=== PATIENT | female | born 1985 ===

== ENCOUNTER 2022-11-14 09:52 | Outpatient (AMB) | payer OTHER, SELFPAY ==
--- NOTE | 2022-11-14 09:55 | MHC.OFFVIS ---
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 My pcp just doesn't know how to treat them because he knows I cant tolerate the triptans. Kids Activities Coach Required: No Allergies [id number] Antimigraine Agents Allergy (Unknown, Verified 11/14/22 10:02) Unknown Medication List - Last Reconciled 11/14/22 by JERAD Obando [id number] 50-325-40 mg 0 tabs PO escitalopram oxalate mg PO famotidine 40 mg PO BEDTIME levothyroxine 25 mcg PO DAILY propranolol 20 mg PO TID topiramate (Topamax) 100 mg PO BEDTIME trazodone 25 mg PO BEDTIME PRN tretinoin 0.025% appl topical BEDTIME HPI HPI Comments History of Present Illness Details Right-handed 37-yr-old female presents for new pt evaluation of headache disorder to optimize migraine tx regimen. Headache questionnaire: Age/time of onset? Dx'd with migraine in 2004, but had s/s prior to this. Preceding causes? None Headache characteristics? A headache starts with mild headache x's 3-4 days f/b a full attack x's another 4-7 days. Pain intensity? Mild-Severe Prodrome symptoms? None Aura? Just once, recently, had right eye tunnel vision. Associated symptoms? Photophobia, phonophobia, osmophobia, nausea, brain fog, tiredness. Focal weakness, Parethesias, Autonomic s/s? watery eyes, runny nose Postdrome? Does not feel well- lingering fatigue, tiredness, brain fog- difficulty word finding Triggers? Stress, not eating- but not a clear trigger of an attack. Positional, valsalva, exertional, sexual activity triggers? None Menstrual triggers? None Time of day? No specific time of day Duration? 1-1.5 weeks Frequency? 1 attack per month- used to be 1 attack per season change. How does headache impact your life? Has not missed work, but sometimes needs to work from remotely. Works as a pharmacy fast food assistant restaurant manager. Current acute medication use/interventions: Excedrin- helps some w/ mild headache. Uses Fioricet for more severe headache- helps her sleep. Previous acute medication use: Sumatriptan, Naratriptan, Rizatriptan- helped w/ headache but all caused nausea, a cold sensation through spine, skin sensitivity. Current preventative medication use: Topiramate 100mg qhs- recently increased from 50-100mg but has not helped. Uses Propranol 20mg prn for anxiety. Previous preventative medication use: Amitriptyline- stopped to minimize side effect and switched to Nortriptyline which was effective but caused GI s/s. Non-pharmacological interventions: Ice, dark room, rest. No h/o head imaging. Other history of headache disorder? None History of musculoskeletal disorders or injury? None History of concussion/head injury? None History of mood disorder? Depression- well-controlled. History of sleep disorder? Some issues. History of respiratory disease? None History of CV disease? None History of coagulopathy? None History of endocrine or metabolic disease? Hypothyroisim- stable History of seizure? None Other? Can be prone to constipation. Family planning? None Family history of migraine or other headache disorder? Mother possibly has migraines. [facility] Medical History (Updated 11/17/22 @ 18:57 by JERAD Obando) GERD (gastroesophageal reflux disease) Gestational diabetes History of COVID-19 Hypothyroidism Surgical History Hx of cholecystectomy [place] teeth extracted Family History Mother History of thyroid disorder Asthma Migraines Diabetes Hypertension CHF (congestive heart failure) Father Diabetes Hypertension Colon polyps Hypercholesteremia Paternal Grandmother Diabetes Hypertension CAD (coronary artery disease) Maternal Grandmother Hypertension Diabetes CAD (coronary artery disease) Alzheimer's dementia Maternal Grandfather Diabetes Hypertension Emphysema lung Social History (Updated 11/14/22 @ 10:07 by Anabella Terrazas CMA) Alcohol intake: current Alcohol intake frequency: does not drink Patient Tobacco Use Status: Never used Tobacco Review of Systems Const Details: See scanned ROS form Physical Exam Vital Signs: Last Vital Signs Pulse 86 11/14/22 09:56 BP 118/88 11/14/22 09:56 Pulse Ox 100 11/14/22 09:56 Oxygen Delivery Method Room Air 11/14/22 09:56 BMI result Body Mass Index 28.8 Const Orientation/consciousness: patient oriented x3 HEENT Other: No palpable scalp tenderness. Head: Yes normocephalic Resp Effort & Inspection: normal respiratory effort and able to speak in complete sentences Back/Spine/Pelvis Other: Bilateral posterior cervical tightness. Cervical ROM: full Left Spurling: normal Right Spurling: normal. Neuro General: patient oriented x3 Cranial nerves: Yes CN's II-XII intact bilaterally Cognition (Neuro): normal cognition Gait exam (Neuro): Normal gait present Motor exam (neuro): 5/5 motor strength present throughout Deep tendon reflexes (DTR's): Right triceps reflex intensity grade: 2+, Left triceps reflex intensity grade: 2+, Rt Biceps (C5, C6): 2+, Left biceps reflex intensity grade: 2+, Right brachioradialis reflex intensity grade: 2+, Left brachioradialis reflex intensity grade: 2+, Right patellar reflex intensity grade: 2+ and Left patellar reflex intensity grade: 2+ Coordination: [id number] test normal, tandem gait normal and Romberg test negative Pupils: Normal pupillary reactivity/response: bilateral Psych Appearance: grossly normal Mental Status: mental status grossly normal Speech and movement: Normal speech and movement present Affect: normal affect Attitude: cooperative Thought process: Normal thought process present Assessment & Plan Assessment & Plan (1) Migraine without aura: Code(s): G43.009 - Migraine without aura, not intractable, without status migrainosus (2) Visual aura: Comment: One episode- right eye- seeing steve booker Code(s): H53.9 - Unspecified visual disturbance Plan For visual aura: Pt has had one episode of right visual aura f/b mild headache. Will monitor. Consider head imaging if repeated or worsening/new symptoms. For overall headache management: Discussed importance of good self-care, including but not limited to maintaining a healthy diet, adequate fluid intake, adequate sleep, and engaging in regular physical activity. For headache triggers: Track headaches, especially after any treatment regimen changes. NoteWagon is one of many headache tracking apps. For acute headache treatment: Discussed importance of taking acute medications at the first sign of headache, however stressed importance of avoiding acute medication overuse (especially with combined headache medications). Trial Ubrogepant (Ubrelvy) 100mg tab, 1/2 - 1 tab (50-100mg) at onset of headache, may repeat in 2 hours. Max of 2 tabs (200mg) per 24 hours. May adjunct with OTC Tylenol 650mg q 4 hours, Ibuprofen 600mg q 6 hours, or Naproxen 440mg q 12 hrs prn. Do not take w/ Butalbital (Fioricet). Hold Fioricet, if Ubrogepant ineffective, may resume. Reviewed potential adverse effects of gepants, including but not limited to fatigue, nausea, dry mouth, constipation. Previous acute migraine medication trials: Sumatriptan, Naratriptan, Rizatriptan- helped w/ headache but all caused nausea, a cold sensation through spine, skin sensitivity. Acute migraine medication contraindications: Triptans- not tolerated. For headache prevention medication: Discussed that preventative medications should be taken routinely as prescribed for best effect, it may take several weeks for full effect to take effect. May continue Topiramate 100mg qhs. Trial adjusting Propranol ER 60mg qhs. Reviewed potential adverse effects of betablockers, including but not limited to fatigue, hypotension, slow heart rate, respiratory changes. Previous migraine prevention medication trials: Amitriptyline- stopped to minimize risk of side effects. Nortriptyline- was effective but caused GI s/s. Migraine prevention medication contraindications: None at this time. Information also given on non-pharmacological interventions, such as Cefaly or Nerivio neuromodulation devices. Pt to follow-up in 3 months or sooner prn. Medications: New ubrogepant (Ubrelvy) take at onset of migraine, may repeat in 2hrs (may take w/ Ibuprofen) 50 - 100 mg (0.5 - 1 x 100 mg) PO ONCE 30 days PRN 16 tabs 3RF migraine headache propranolol ER 60 mg PO BEDTIME 30 days 30 caps 6RF Coding Level of Care Code New Pt Level 4 (47991) Diagnoses Migraine without aura G43.009 Visual aura H53.9
[2022-11-14 09:56] VITALS: BP 118/88; PULSE 86; O2SAT 100; BMI 28.8
== END 2022-11-14 11:12 | disposition home or self-care (01) ==
LOC: HO.HSMS 09:52
PROVIDERS: PCP Internal Medicine; Visit Provider Nurse Practitioner Family
DX: G43.009 Migraine without aura, not intractable, without status migrainosus (principal); H53.9 Unspecified visual disturbance
CPT/HCPCS: 99204

== ENCOUNTER → 2022-11-14 09:52 | Outpatient (BNVA) | payer OTHER, SELFPAY | PROVIDERS: PCP Internal Medicine; Visit Provider Nurse Practitioner Family ==

== ENCOUNTER 2023-02-27 08:01 | Outpatient (AMB) | payer OTHER, SELFPAY ==
--- NOTE | 2023-02-27 08:14 | A.OFFVIS_ITS ---
Intake Vital Signs 02/27/23 08:16 Height 5 ft 3 in Weight 166 lb BMI 29.4 BP 112/74 Blood Pressure Location Rt brachial Position Sitting Pulse 72 Pulse Source Pulse Oximeter Pulse Oximetry (%) 100 Oxygen Delivery Method Room Air Intake Visit Reasons: 3 mo F/U for Migraines-LVM Intake Note: Patient presents for 3 month follow up migraines. Patient states my migraines are better I use to get clusters now I have them but the medication is working. Allergies [id number] Antimigraine Agents Allergy (Unknown, Verified 11/14/22 10:02) Unknown Medication List - Last Reconciled 02/27/23 by JERAD Obando [id number] 50-325-40 mg 1 tab PO Q4H PRN 30 days [id number]-[id number] 50-325-40 mg 0 tabs PO escitalopram oxalate mg PO famotidine 40 mg PO BEDTIME levothyroxine 25 mcg PO DAILY propranolol 20 mg PO TID propranolol ER 60 mg PO BEDTIME 30 days topiramate (Topamax) 100 mg PO BEDTIME trazodone 25 mg PO BEDTIME PRN tretinoin 0.025% appl topical BEDTIME ubrogepant (Ubrelvy) 50 - 100 mg (0.5 - 1 x 100 mg) PO ONCE PRN 30 days HPI HPI Comments History of Present Illness Details 37-yr-old female presents for f/u visit. Pt denies any significant interval medical changes. She continues to have a almost daily pressure headache. She has had a more severe migraine 4 days a month. Pt reports since starting Ubrelvy, she is not having any prolonged migraine attacks. Only once has had to take a second dose of Ubrelvy. She has stopped the Topiramate- was hoping she would have less cognitive symstoms- fogginess and word finding difficulty but this did not lesses, however it had no effect positive or negative on her headache so she did not reusme. ON LICENSE OF [facility] Medical History GERD (gastroesophageal reflux disease) Gestational diabetes Hypothyroidism History of COVID-19 Surgical History [place] teeth extracted Hx of cholecystectomy Family History Mother History of thyroid disorder Asthma Migraines Diabetes Hypertension CHF (congestive heart failure) Father Diabetes Hypertension Colon polyps Hypercholesteremia Paternal Grandmother Diabetes Hypertension CAD (coronary artery disease) Maternal Grandmother Hypertension Diabetes CAD (coronary artery disease) Alzheimer's dementia Maternal Grandfather Diabetes Hypertension Emphysema lung Social History Alcohol intake: current Alcohol intake frequency: does not drink Patient Tobacco Use Status: Never used Tobacco Review of Systems Const All systems reviewed & are unremarkable except as noted in HPI and below Physical Exam Vital Signs: Last Vital Signs Pulse 72 02/27/23 08:16 BP 112/74 02/27/23 08:16 Pulse Ox 100 02/27/23 08:16 Oxygen Delivery Method Room Air 02/27/23 08:16 BMI result Body Mass Index 29.4 Const General: cooperative and no acute distress Orientation/consciousness: patient oriented x3 HEENT Head: Yes normocephalic Resp Effort & Inspection: normal respiratory effort and able to speak in complete sentences Neuro General: patient oriented x3, gait normal and CN's II-XI intact bilaterally Cognition (Neuro): normal cognition Motor exam (neuro): 5/5 motor strength present throughout Psych Appearance: grossly normal Mental Status: mental status grossly normal Speech and movement: Normal speech and movement present Affect: normal affect Attitude: cooperative Thought process: Normal thought process present Thought content: Normal thought content present Insight: Good insight present (Psych) Judgement: Good judgement present (Psych) Assessment & Plan Assessment & Plan (1) Migraine without aura: Comment: episodic Code(s): G43.009 - Migraine without aura, not intractable, without status migrainosus (2) Visual aura: Comment: One episode- right eye- seeing steve booker Code(s): H53.9 - Unspecified visual disturbance Plan For visual aura: Pt has had one episode of right visual aura f/b mild headache. Will monitor. Consider head imaging if repeated or worsening/new symptoms. ? For overall headache management: Continue to optimize good self-care, including but not limited to maintaining a healthy diet, adequate fluid intake, adequate sleep, and engaging in regular physical activity. Track headaches. ? For acute headache treatment: Continue Ubrogepant (Ubrelvy) 100mg tab, 1/2 - 1 tab (50-100mg) at onset of headache, may repeat in 2 hours. Max of 2 tabs (200mg) per 24 hours. May adjunct with OTC Tylenol 650mg q 4 hours, Ibuprofen 600mg q 6 hours, or Naproxen 440mg q 12 hrs prn. Stop Fioricet. Previous acute migraine medication trials: Sumatriptan, Naratriptan, Rizatriptan- helped w/ headache but all caused nausea, a cold sensation through spine, skin sensitivity. Acute migraine medication contraindications: Triptans- not tolerated. ? For headache prevention medication: Pt stopped Topiramate 100mg qhs- ineffective. Continue Propranol ER 60mg qhs. Start Aimovig 140mg sc q month- in hopes this leeses overall headache burden and cognitive s/s (likely d/t frequent headache) Previous migraine prevention medication trials: Amitriptyline- stopped to minimize risk of side effects. Nortriptyline- was effective but caused GI s/s. Topiramate 100mg qhs x's . 12 weeks- ineffective. Migraine prevention medication contraindications: None at this time. ? ? Pt to follow-up in 3-4 months or sooner prn. Medications: New erenumab-aooe (Aimovig Autoinjector) 140 mg subcut ONCE 30 days 1 mL 6RF Coding Level of Care Code Est Pt Level 4 (20888) Diagnoses Migraine without aura G43.009 Visual aura H53.9
[2023-02-27 08:16] VITALS: BP 112/74; PULSE 72; O2SAT 100; BMI 29.4
== END 2023-02-27 08:44 | disposition home or self-care (01) ==
PROVIDERS: PCP Internal Medicine; Visit Provider Nurse Practitioner Family
DX: G43.009 Migraine without aura, not intractable, without status migrainosus (principal); H53.9 Unspecified visual disturbance
CPT/HCPCS: 99214

== ENCOUNTER → 2023-02-27 08:01 | Outpatient (BNVA) | payer OTHER, SELFPAY | PROVIDERS: PCP Internal Medicine; Visit Provider Nurse Practitioner Family ==

== ENCOUNTER 2023-06-12 07:57 | Outpatient (AMB) | payer OTHER, SELFPAY ==
--- NOTE | 2023-06-12 08:00 | MHC.OFFVIS ---
Intake Vital Signs 06/12/23 08:01 Height 5 ft 3 in Weight 175 lb BMI 31.0 Intake Visit Reasons: 3 mo F/U for Migraines-Conf Intake Note: Patient presents for 3 month follow up migraines. My migraines are much improved since starting the aimovig. Allergies [id number] Antimigraine Agents Allergy (Unknown, Verified 11/14/22 10:02) Unknown Medication List - Last Reconciled 06/12/23 by JERAD Obando [id number]-fliqjutyhvugy-tvzm 50-325-40 mg 1 tab PO Q4H PRN 30 days erenumab-aooe (Aimovig Autoinjector) 140 mg subcut ONCE 30 days escitalopram oxalate mg PO famotidine 40 mg PO BEDTIME levothyroxine 25 mcg PO DAILY propranolol 20 mg PO TID propranolol ER 60 mg PO BEDTIME 30 days trazodone 25 mg PO BEDTIME PRN tretinoin 0.025% appl topical BEDTIME ubrogepant (Ubrelvy) 50 - 100 mg (0.5 - 1 x 100 mg) PO ONCE PRN 30 days HPI HPI Comments History of Present Illness Details 37-yr-old female presents for f/u visit for migraine. Pt denies any significant interval medical changes. Pt reports since starting Aimovig, she is no longer having a daily headache. She does have headaches everyday during the week before her next Aimovig injection is due. Has had some mild constipation at times, responsive to prn colace. Ubrelvy is still effective. Baseline headache characteristics: Just once, had right eye tunnel vision. Mild-Severe. Headache starts with mild headache x's 3-4 days f/b a full attack x's another 4-7 days. A/w Photophobia, phonophobia, osmophobia, nausea, brain fog, tiredness. And Postdrome of not feeling well- lingering fatigue, tiredness, brain fog- difficulty word finding ) PFSH Medical History GERD (gastroesophageal reflux disease) Gestational diabetes Hypothyroidism History of COVID-19 Surgical History [place] teeth extracted Hx of cholecystectomy Family History Mother History of thyroid disorder Asthma Migraines Diabetes Hypertension CHF (congestive heart failure) Father Diabetes Hypertension Colon polyps Hypercholesteremia Paternal Grandmother Diabetes Hypertension CAD (coronary artery disease) Maternal Grandmother Hypertension Diabetes CAD (coronary artery disease) Alzheimer's dementia Maternal Grandfather Diabetes Hypertension Emphysema lung Social History Alcohol intake: current Alcohol intake frequency: does not drink Patient Tobacco Use Status: Never used Tobacco Physical Exam Vital Signs: BMI result Body Mass Index 31.0 Const General: cooperative and no acute distress Orientation/consciousness: patient oriented x3 Resp Effort & Inspection: normal respiratory effort and able to speak in complete sentences Neuro General: patient oriented x3 Cranial nerves: Yes CN's II-XII intact bilaterally Cognition (Neuro): normal cognition Psych Appearance: grossly normal Mental Status: mental status grossly normal Speech and movement: Normal speech and movement present Affect: normal affect Attitude: cooperative Assessment & Plan Assessment & Plan (1) Migraine without aura: Comment: episodic Code(s): G43.009 - Migraine without aura, not intractable, without status migrainosus (2) Visual aura: Comment: One episode- right eye- seeing zigagandeep booker Code(s): H53.9 - Unspecified visual disturbance Plan For visual aura: Pt has had one episode of right visual aura f/b mild headache. Will monitor. Consider head imaging if repeated or worsening/new symptoms. ? For overall headache management: Continue to optimize good self-care, including but not limited to maintaining a healthy diet, adequate fluid intake, adequate sleep, and engaging in regular physical activity. Track headaches. ? For acute headache treatment: Continue Ubrogepant (Ubrelvy) 100mg tab, 1/2 - 1 tab (50-100mg) at onset of headache, may repeat in 2 hours. Max of 2 tabs (200mg) per 24 hours. May adjunct with OTC Tylenol 650mg q 4 hours, Ibuprofen 600mg q 6 hours, or Naproxen 440mg q 12 hrs prn. Stop Fioricet. Previous acute migraine medication trials: Sumatriptan, Naratriptan, Rizatriptan- helped w/ headache but all caused nausea, a cold sensation through spine, skin sensitivity. Acute migraine medication contraindications: Triptans- not tolerated. ? For headache prevention medication: Continue Propranol ER 60mg qhs. Continue Aimovig 140mg sc q month- as this has been significantly effective. Take Ubrelvy daily starting 8 days before next Aimovig injection. Monitor constipation- if worsens consider ligand blocking CGRP MaB. Previous migraine prevention medication trials: Amitriptyline- stopped to minimize risk of side effects. Nortriptyline- was effective but caused GI s/s. Topiramate 100mg qhs x's 12 weeks- ineffective. Migraine prevention medication contraindications: None at this time. ? ? Pt to follow-up in 4 months or sooner prn. Medications: Refilled ubrogepant (Ubrelvy) take at onset of migraine, may repeat in 2hrs (may take w/ Ibuprofen) 50 - 100 mg (0.5 - 1 x 100 mg) PO ONCE PRN 16 tabs 6RF migraine headache 30 days Coding Level of Care Code Est Pt Level 4 (03152) Diagnoses Migraine without aura G43.009 Visual aura H53.9
[2023-06-12 08:01] VITALS: BMI 31.0
== END 2023-06-12 08:54 | disposition home or self-care (01) ==
PROVIDERS: PCP Internal Medicine; Visit Provider Nurse Practitioner Family
DX: G43.009 Migraine without aura, not intractable, without status migrainosus (principal); H53.9 Unspecified visual disturbance
CPT/HCPCS: 99214

== ENCOUNTER → 2023-06-12 07:57 | Outpatient (BNVA) | payer OTHER, SELFPAY | PROVIDERS: PCP Internal Medicine; Visit Provider Nurse Practitioner Family ==

== ENCOUNTER 2024-01-19 11:29 | Outpatient (AMB) | payer OTHER, SELFPAY ==
--- NOTE | 2024-01-19 11:46 | A.OFFVIS_ITS ---
Vital Signs 01/19/24 11:49 Height 5 ft 3 in Weight 170 lb BMI 30.1 BP 102/78 Blood Pressure Location Rt brachial Position Sitting Intake Visit Reasons: 5m f/u Migraines Intake Note: Patient presents for migraines. migraines getting worst in frequency not severity. Allergies [id number] Antimigraine Agents Allergy (Unknown, Verified 01/19/24 11:50) Unknown Medication List - Last Reconciled 01/19/24 by JERAD Obando ftzocfthyd-cowoczqnwiheb-uans 50-325-40 mg 1 tab PO Q4H PRN 30 days erenumab-aooe (Aimovig Autoinjector) 140 mg subcut ONCE 90 days escitalopram oxalate mg PO famotidine 40 mg PO BEDTIME lamotrigine 150 mg PO DAILY levothyroxine 25 mcg PO DAILY propranolol ER 80 mg PO BEDTIME 90 days semaglutide (weight loss) (Wegovy) mg subcut trazodone 25 mg PO BEDTIME PRN tretinoin 0.025% appl topical BEDTIME ubrogepant (Ubrelvy) 50 - 100 mg (0.5 - 1 x 100 mg) PO ONCE PRN 30 days HPI Comments Details: 38-yr-old female presents for f/u visit. Pt denies any significant interval medical changes. Pt reports she is having more frequency of migraines- now 1-2 migraine days per week. Ubrelvy was helpful when used prior to the upcoming Aimovig injection, however cannot do this now as she is needing to take it more often for breakthrough migraine. She states she only has migraine attacks when at work. She feels her strongest triggers are the light exposures at work. Now needing to take Ubrelvy 2 tabs. Compliant w/ Aimovig and Propranolol. Denies lightheadedness. Has not had any visual aura episodes. Baseline headache characteristics: Baseline headache characteristics: Just once, had right eye tunnel vision. Mild-Severe. Headache starts with mild headache x's 3-4 days f/b a full attack x's another 4-7 days. A/w Photophobia, phonophobia, osmophobia, nausea, brain fog, tiredness. And Postdrome of not feeling well- lingering fatigue, tiredness, brain fog- difficulty word finding PFSH Medical History GERD (gastroesophageal reflux disease) Gestational diabetes Hypothyroidism History of COVID-19 Surgical History [place] teeth extracted Hx of cholecystectomy Family History Mother History of thyroid disorder Asthma Migraines Diabetes Hypertension CHF (congestive heart failure) Father Diabetes Hypertension Colon polyps Hypercholesteremia Paternal Grandmother Diabetes Hypertension CAD (coronary artery disease) Maternal Grandmother Hypertension Diabetes CAD (coronary artery disease) Alzheimer's dementia Maternal Grandfather Diabetes Hypertension Emphysema lung Social History Alcohol intake: current Alcohol intake frequency: does not drink Patient Tobacco Use Status: Never used Tobacco Physical Exam Vital Signs: Last Vital Signs BP 102/78 01/19/24 11:49 BMI result Body Mass Index 30.1 Const General: cooperative and no acute distress Orientation/consciousness: patient oriented x3 Resp Effort & Inspection: normal respiratory effort and able to speak in complete sentences Neuro Other: photophobic General: patient oriented x3 Cranial nerves: Yes CN's II-XII intact bilaterally Cognition (Neuro): normal cognition Psych Appearance: grossly normal Mental Status: mental status grossly normal Speech and movement: Normal speech and movement present Affect: normal affect Attitude: cooperative Assessment & Plan Assessment & Plan (1) Migraine without aura: Comment: episodic Code(s): G43.009 - Migraine without aura, not intractable, without status migrainosus Category: Medical (2) Visual aura: Comment: One episode- right eye- seeing steve booker Code(s): H53.9 - Unspecified visual disturbance Category: Medical (3) Photophobia: Code(s): H53.149 - Visual discomfort, unspecified Category: Medical Plan For visual aura: Pt has had one episode of right visual aura f/b mild headache. Will monitor. Consider head imaging if repeated or worsening/new symptoms. ? For overall headache management: Continue to optimize good self-care, including but not limited to maintaining a healthy diet, adequate fluid intake, adequate sleep, and engaging in regular physical activity. Track headaches. Information shared on strategies to reduce migraine attacks triggered by light exposure at work. Pt would benefit from reasonable workplace accommodations- she will review and let us know what would work best for her. ? For acute headache treatment: Continue Ubrogepant (Ubrelvy) 100mg tab, 1/2 - 1 tab (50-100mg) at onset of headache, may repeat in 2 hours. Max of 2 tabs (200mg) per 24 hours. May adjunct with OTC Tylenol 650mg q 4 hours, Ibuprofen 600mg q 6 hours, or Naproxen 440mg q 12 hrs prn. Stop Fioricet. Previous acute migraine medication trials: Sumatriptan, Naratriptan, Rizatriptan- helped w/ headache but all caused nausea, a cold sensation through spine, skin sensitivity. Acute migraine medication contraindications: Triptans- not tolerated. ? For headache prevention medication: Increase Propranol ER from 60mg to 80mg qhs. Continue Aimovig 140mg sc q month- as this has been significantly effective. May take Ubrelvy daily starting 8 days before next Aimovig injection. Monitor constipation- if worsens consider ligand blocking CGRP MaB. Previous migraine prevention medication trials: Amitriptyline- stopped to minimize risk of side effects. Nortriptyline- was effective but caused GI s/s. Topiramate 100mg qhs x's 12 weeks- ineffective. Migraine prevention medication contraindications: None at this time. ? ? Pt to follow-up in 6 months or sooner prn. Medications: New propranolol ER 80 mg PO BEDTIME 90 days 90 caps 1RF Discontinued propranolol ER Discontinued Reason: Doctor's Order 60 mg PO BEDTIME 90 days 90 caps 1RF Coding Level of Care Code Est Pt Level 4 (57055) Diagnoses Migraine without aura G43.009 Visual aura H53.9 Photophobia H53.149
[2024-01-19 11:49] VITALS: BP 102/78; BMI 30.1
== END 2024-01-19 13:00 | disposition home or self-care (01) ==
PROVIDERS: PCP Internal Medicine; Visit Provider Nurse Practitioner Family
DX: G43.009 Migraine without aura, not intractable, without status migrainosus (principal); H53.9 Unspecified visual disturbance; H53.149 Visual discomfort, unspecified
CPT/HCPCS: 99214

== ENCOUNTER → 2024-01-19 11:29 | Outpatient (BNVA) | payer OTHER, SELFPAY | PROVIDERS: PCP Internal Medicine; Visit Provider Nurse Practitioner Family ==

== ENCOUNTER 2024-11-29 08:00 | Outpatient (AMB) | payer OTHER, SELFPAY ==
--- OUTSIDE RECORDS SUMMARY | 2024-11-29 08:03 | XMS_ITS ---
Author Name [facility] Organization Unknown Care Team Organization Name Specialty Phone Email Start Date End Da te [facility] 03/12/2022 12/22/19 24
--- OUTSIDE RECORDS SUMMARY | 2024-11-29 08:03 | XMS_ITS | Data Portability ---
Author Organization [facility] in Office Address [address] [place] [address] Assessment Encounter Date Assessment Date Assessment LastModified by Organization Details LastModified Time 06/03/2024 06/03/2024 I spent 10 minutes of psda-ym-baki counselling and care coordination time with the patient. This includes reviewing medical records (medical, surgical, family and social history); updating medication and allergy information in the electronic health record; and ordering labs, medications, and education materials to continue patient care. Not available 06/03/2024 07:18:03 07/02/2024 07/02/2024 I spent 10 minutes of wbck-tt-ieic counselling and care coordination time with the patient. This includes reviewing medical records (medical, surgical, family and social history); updating medication and allergy information in the electronic health record; and ordering labs, medications, and education materials to continue patient care. Not available 07/02/2024 08:40:22 07/30/2024 07/30/2024 I spent 15 minutes of pwoe-wq-nsmn counselling and care coordination time with the patient. This includes reviewing medical records (medical, surgical, family and social history); updating medication and allergy information in the electronic health record; and ordering labs, medications, and education materials to continue patient care. Not available 07/30/2024 09:24:27 09/02/2024 09/02/2024 I spent 10 minutes of qhca-rx-vpjx counselling and care coordination time with the patient. This includes reviewing medical records (medical, surgical, family and social history); updating medication and allergy information in the electronic health record; and ordering labs, medications, and education materials to continue patient care. Not available 09/02/2024 09:54:02 11/11/2024 11/11/2024 I spent 15 minutes of qiic-jr-myev counselling and care coordination time with the patient. This includes reviewing medical records (medical, surgical, family and social history); updating medication and allergy information in the electronic health record; and ordering labs, medications, and education materials to continue patient care. Not available 11/11/2024 16:26:49 Plan of Treatment Reminders Order Date Submit Date Provider Last Modified By Organization Details Last Modified Time Details Appointments [id number] 2024 05:15A Marlon Dubois Post, [employer] COMPOUND[employer] SUPERVISOR Not available Not available Not available Lab None recorded. Referral None recorded. Procedures None recorded. Surgeries None recorded. Imaging None recorded. Medication Orders Zepbound 2.5 mg/0.5 mL subcutane ous pen injector 2024 025 [id number], [address], [place], [id number], 11/11/2024 16:41:47 Wegovy 1 mg/0.5 mL subcutane ous pen injector 2024 025 [facility] #30676, [address], [place], [id number], 07/30/2024 09:26:12 progester one micronize d 100 mg capsule 2024 025 [facility] #66273, [address], [place], [id number], 07/30/2024 09:26:18 estradiol 0.05 mg/24 hr semiweekl y transderm al patch 2024 025 [facility] #84112, [address], [place], [id number], 07/30/2024 09:26:12 Wegovy 0.5 mg/0.5 mL subcutane ous pen injector 2024 025 [facility]55[facility], [address] , [place], [place], [id number], 09/02/2024 09:35:55 Wegovy 0.5 mg/0.5 mL subcutane ous pen injector 2024 025 [facility], [address] , [place], [place], [id number], 09/02/2024 09:35:44 Patient TargetsNo targets recorded. Patient Instructions Encounter Date Encounter Id Patient Instructions Last Modified By Organization Details Last Modified Time 06/03/2024 [id number] Any requested follow-up visits are listed below in the Plan of Care section. Go directly to the [facility] maintenance scheduler at [email or web address] to book a time. Not available 06/02/2024 15:39:17 It was a pleasur e to meet with you today! We discussed your health concerns related to your weight management and the use of Wegovy. Your Care Plan Together, we decided that you would: - Increase the dosage of Wegovy to 0.05. This medication is used to help manage your weight. Please continue to monitor for any side effects such as constipation, diarrhea, or nausea. If you experience any of these, please contact me immediately. - Continue your exercise routine as discussed. Regular physical activity is an important part of weight management. - Strive to consume 100 grams of protein, fiber, and ounces of water daily. This balanced intake can help with weight management and overall health. - We have scheduled a follow-up appointment for the week of June 27. We will discuss your progress and make any necessary adjustments to your treatment plan. - Continue to administer your Wegovy injections as instructed. If you have any questions or concerns about this, please reach out to me. - Continue taking your current medications Please carefully review the care plan we decided upon, specific information regarding your medication, and important details about your treatment detailed below. If you need anything before our next appointment, please don't hesitate to send me a message. Remember, it's important to monitor your body's response to the increased dosage of Wegovy and to continue with your exercise and dietary goals. Thank you for trusting us with your care! Not available 06/03/2024 07:19:07 07/02/2024 [id number] Any requested follow-up visits are listed below in the Plan of Care section. Go directly to the [facility] maintenance scheduler at [email or web address] to book a time. Not available 06/30/2024 15:07:15 It was a pleasur e to meet with you today! We discussed your health concerns related to your ongoing treatment with Wegovy. Your Care Plan Together, we decided that you would: - Continue with your current dose of Wegovy for the next 4 weeks. - Weigh yourself regularly to monitor your progress. - Continue with your current exercise routine. - We have scheduled a follow-up appointment for July 30 at 9:15 am to discuss your progress and adjust your treatment plan as needed. - Your medication will continue to be sent to [facility]. Please remember to take your Wegovy injection on Sundays. You mentioned that you have lost a pound, which is a positive sign that the medication is working. It's important to continue with your current dose and exercise routine to support your weight loss journey. Please carefully review the care plan we have decided upon, specific information regarding your medication, and important details about your treatment detailed below. Thank you for trusting us with your care! Not available 07/02/2024 08:41:05 07/30/2024 [id number] Any requested follow-up visits are listed below in the Plan of Care section. Go directly to the [facility] maintenance scheduler at [email or web address] to book a time. Not available 07/29/2024 07:54:04 It was a pleasur e to meet with you today! We discussed your health concerns related to weight management and hormone therapy. Your Care Plan Together, we decided that you would: - Increase your Wegovy dosage to 1 mg. The prescription will be sent to [facility] and will include 6 pens. - Administer the Wegovy injection once a week. - Restart estrogen at 0.05 mg and continue taking progesterone 100 mg. The prescriptions will be sent to [facility]. - Schedule a follow-up appointment on September 02 at 9:45 AM. Please carefully review the care plan we have decided upon, specific information regarding your medication, and important details about your treatment detailed below. Thank you for trusting us with your care! It was a pleasure to meet with you today! We discussed your health concerns related to weight management and hormone therapy. Not available 07/30/2024 09:25:12 09/02/2024 [id number] Any requested follow-up visits are listed below in the Plan of Care section. Go directly to the [employer] maintenance scheduler at [email or web address] to book a time. Not available 09/01/2024 09:55:58 It was a pleasur e to meet with you today! We discussed your health concerns and reviewed your current medications. Your Care Plan Together, we decided that you would: - Increase your Wegovy dosage to 1 mg starting this week. - Be aware that increasing the dosage may cause more constipation; ensure you consume plenty of fiber. - Make sure to get enough protein in your diet. - Continue taking your current medications, which include: - Aimovig - Fioricet - Escitalopram 5 mg - Estrogen patch - Lamotrigine 200 mg - Propranolol 80 mg - Synthroid - Trazodone - Ubrelvy - Vraylar - Discontinue Quetiapine if you haven't already. - Follow up with me on the at 3:00 PM to monitor your progress with the new Wegovy dosage. Please carefully review the care plan we have agreed upon above, which includes specific information about your medication adjustments and dietary recommendations. Thank you for trusting us with your care! Not available 09/02/2024 09:53:03 11/11/2024 [id number] Any requested follow-up visits are listed below in the Plan of Care section. Go directly to the [facility] maintenance scheduler at [email or web address] to book a time. To schedule or modify your visit, access the [facility] portal here: [email or web address] Not available 11/11/2024 16:11:00 Dear Jett bey, It was great to see you today! Below is a summary of the plan we decided upon together: Obesity and weight management - We will transition from Wegovy to Zepbound because your insurance now covers Zepbound. - I will calculate the most appropriate starting dose to match your previous 1 mg weekly injection. - Your prescription will be sent to [facility] in [place]; please call them later today to confirm and update me through the portal. - Continue with healthy eating habits and plan to restart regular exercise when your travel schedule permits. - Our next virtual visit is set for December at 08:15 AM. Constipation - Keep using your current stool softener and drink plenty of water. - Add fiber-rich foods as tolerated to support bowel regularity. - Let me know if constipation worsens or new symptoms arise. If you have any questions or experience any new symptoms, please do not hesitate to reach out to our office. Sincerely, Sherly Troncoso NP [email or web address] Not available 11/11/2024 16:11:00 Reason for Referral None Reported. Problems Name Problem SNOMED Code Status Onset Date Resolution Date Notes Provider Name and Address Organization Details Recorded Time Menopausal symptom 31570668 Active 2022 [place] [address] [address], [place], [address], [facility] 3 11:54:33 Insomnia 433338747 Active 2022 [place] [address] [place], [address], [facility] 3 12:33:29 Laparoscopic sleeve gastrectomy [place] 2022 [place] [address] [place], [place], [facility] 3 15:34:36 Anxiety 37643011 [place] 2022 [place] [address] [place] [place], [place], [facility] 3 15:34:47 Depressive disorder 95273988 Active 2022 [place] [address] [place], 2, [facility] 3 15:34:53 Hypothyroidi sm 14856946 Active 2022 [place] [address] [place] [place], [place], [facility] 3 15:35:02 Migraine 99995827 Active 2022 [place] [address] [place] [place], [place], [facility] 3 15:35:23 Obesity 837462425 Active 2023 [place] [address] [facility] 4 08:19:37 Problem Notes None recorded. Procedures Surgical History Date Name Laterality Status Provider Name and Address Organization Details Recorded Time 4 Date of Last Mammogram completed [place]ly [place] [address] [place], , [facility] 04/23/2024 12:44:59 3 Date of Last [place] [address] [place], [address], [facility] 08/29/2023 08:18:02 Imaging Results None recorded. Procedure Notes None recorded. Medical Equipment None Reported. Allergies No known drug allergies Medications Name Sig Start Date Stop Date Status Note LastModified by Organization Details LastModified Time Prometriu m 200 mg capsule Take 1 capsule every day by oral route at bedtime for 90 days. 04/23 completed Not Available Not Available Not Available lamotrigi ne 150 mg tablet TAKE 1 TABLET BY MOUTH DAILY 09/02 completed Not Available Not Available Not Available lamotrigi ne 200 mg tablet TAKE 1 TABLET BY MOUTH DAILY active Not Available Not Available No t Available trazodone 50 mg tablet TAKE 1/2 TABLET BY MOUTH 1 TIME A DAY AT BEDTIME active Not Available Not Available No t Available estradiol 0.05 mg/24 hr semiweekl y transderm al patch APPLY 1 PATCH TOPICALL Y TO THE SKIN 2 TIMES A WEEK active Not Available Not Available No t Available butalbita l-acetami nophen-ca ffeine 50 mg-325 mg-40 mg tablet TAKE 1 TABLET BY MOUTH EVERY 4 HOURS NEEDED FOR HEADACHE . MAX 2 TABLETS DAILY OR 4 TABLET EVERY WEEK active Not Available Not Available No t Available lamotrigi ne 25 mg tablet TAKE 3 TABLETS BY MOUTH 1 TIME A DAY 09/02 completed Not Available Not Available Not Available Synthroid 25 mcg tablet active Not Available Not Available Not Available Vivelle-D ot 0.0375 mg/24 hr transderm al patch Apply 1 patch twice a week by transder mal route. 06/13 completed Not Available Not Available Not Available lamotrigi ne 100 mg tablet TAKE 1 TABLET BY MOUTH DAILY 09/02 completed Not Available Not Available Not Available progester one micronize d 100 mg capsule TAKE 1 CAPSULE BY MOUTH DAILY AT BEDTIME active Not Available Not Available No t Available escitalop yamile 10 mg tablet TAKE 1/2 TABLET BY MOUTH 1 TIME A DAY 09/02 completed Not Available Not Available Not Available ciproflox acin 0.3 %-dexamet hasone 0.1 % ear drops,falguni pension PLACE 4 DROPS INTO BOTH EARS TWICE DAILY FOR 7 DAYS. TILT HEAD SO THAT TREATED EAR POINTS UPWARD 04/23 completed Not Available Not Available Not Available escitalop yamile 5 mg tablet TAKE 1 TABLET BY MOUTH DAILY active Not Available Not Available No t Available propranol ol active for migraine s Not Available Not Available Not Available aripipraz ole 2 mg tablet TAKE 1 TABLET BY MOUTH DAILY 04/23 completed Not Available Not Available Not Available quetiapin e 50 mg tablet TAKE 1 TABLET BY MOUTH DAILY AT BEDTIME 09/02 completed Not Available Not Available Not Available Fioricet 50 mg-300 mg-40 mg capsule 07/02 completed Not Available Not Available Not Available Vraylar 1.5 mg capsule TAKE 1 CAPSULE BY MOUTH DAILY active Not Available Not Available No t Available Aimovig Autoinjec tor 140 mg/mL subcutane ous auto-inje ctor ADMINIST ER 1 ML UNDER THE SKIN 1 TIME active Not Available Not Available No t Available Ubrelvy 100 mg tablet active Not Available Not Available Not Available Wegovy 1 mg/0.5 mL subcutane ous pen injector INJECT 1MG SUBCUTAN EOUSLY ONCE A WEEK active Not Available Not Available No t Available Wegovy 0.25 mg/0.5 mL subcutane ous pen injector ADMINIST ER 0.25 MG UNDER THE SKIN EVERY WEEK DIRECTED FOR 4 WEEKS 06/03 completed Not Available Not Available Not Available Wegovy 0.5 mg/0.5 mL subcutane ous pen injector INJECT 0.5MG SUBCUTAN EOUSLY ONCE A WEEK 09/02 completed Not Available Not Available Not Available Zepbound 2.5 mg/0.5 mL subcutane ous pen injector Inject 2.5 mg by subcutan eous route for 30 days. 2024 active Not Available Not Available Not Avai lable Vitals Date Recorded Body height Body mass index (BMI) Body weight Provider Name and Address Organization Details Last Updated DateTime 06/03/2024 160.02 cm 28.9 kg/m2 67333.56 g Sherly Troncoso, [employer] SUPERVISOR [address] [place], [address], [facility] 06/02/2024 15:39:31 Date Recorded Body height Body mass index (BMI) Body weight Provider Name and Address Organization Details Last Updated DateTime 07/02/2024 160.02 cm 29.2 kg/m2 65803.74 g Sherly Post, [employer] COMPOUNDER SUPERVISOR [address] [place], [address], [facility] 07/02/2024 08:34:27 Date Recorded Body height Body mass index (BMI) Body weight Provider Name and Address Organization Details Last Updated DateTime 07/30/2024 160.02 cm 29.1 kg/m2 15358.15 g Sherly Post, [employer]ER COMPOUNDER SUPERVISOR [address] [place], [address], [facility] 07/30/2024 09:18:02 Date Recorded Body height Body mass index (BMI) Body weight Provider Name and Address Organization Details Last Updated DateTime 09/02/2024 160.02 cm 28.8 kg/m2 93098.76 g Sherly Troncoso, RU[employer] COMPOUNDER SUPERVISOR [address] [address] [place], [place], , [facility] 09/02/2024 09:49:08 Date Recorded Body height Body mass index (BMI) Body weight Provider Name and Address Organization Details Last Updated DateTime 11/11/2024 160.02 cm 28.3 kg/m2 59721.78 g Sherly Troncoso, [employer] COMP[employer]ER SUPERVISOR [address] [facility] 11/11/2024 16:02:18 Social History Question Answer Notes LastModified by Organizat ion Details LastModified Time Tobacco Smoking Status Never Smoker Sherly Troncoso, [employer]ER COMPOUNDER SUPERVISOR [address] [place], , [facility] 09/02/2024 09:47:50 What Is Your Relationship Status? Information not available 09/02/2024 Sex: Female Functional Status Question Answer Note LastModified by Organization D etails LastModified Time What is your level of alcohol consumption? None Information not available 09/02/2024 Are you currently employed? Yes Information not available 09/02/2024 Mental Status None recorded. Family History Relationship Description Onset Age of this Age Resolved Age Notes LastModified by Organization Details LastModified Time Mother Heart failure [email or web address] Not available 2022 15:00:14 Notes:No family hx breast, o varian, or uterine cancer Medical History Condition Response Anxiety Disorder Y Thyroid Problems Y Headaches N Gynecological History Statement/Question Response Date of Last Pap Smear 02/13/2023 Current Control Method Partner Vas ectomy Date of Last Mammogram 02/03/2024 Approximate Date of LMP 07/09/2024 Hormone Replacement Therapy Yes Obstetrics History GPAL:G 2 P 2 0 0 0 Type Value Full Term 2 Total 2 Past Encounters Encounter ID Performer Location Encounter Start Date Encounter Closed Date Diagnosis/Indication Diagnosis SNOMED-CT Code Diagnosis ICD10 Code Diagnosis Note [id number] MERE GREENE NP Main Office [address] [place] [address] 03/24/2023 11:01:28 03/25/2023 06:24:07 Menopausal symptom 60996369 N95.1 37 year old perimenopa usal female presents to [facility] to discuss her perimenopa usal sx. Her most bothersome symptoms include:ni ght sweats (1x a week), insomnia, hot flashes, and mood changes. We reviewed HRT in detail today. Discussed the research findings from the [facility] as well as more recent research studies. We reviewed the increased risk of breast cancer and blood clots associated with HRT. Reviewed patient's medical history and found her to be a safe candidate for a trial of HRT. We will start with Vivelle Dot 0.0375mg/2 4hr estradiol patch with Prometrium 100 mg. Her has a vasectomy - no additional contracept ion is needed at this time. Reviewed common side effects associated with HRT including including breast tenderness , headaches, and abdominal bloating. Advised patient to take her patch off and go to the ER if she develops signs or sx of a blood clot. Scheduled a follow-up visit in five weeks to assess the effectiven ess of the treatment and adjust the plan as necessary. All questions answered to patient's satisfacti on. Insomnia 252274529 G47.0 0 - The patient's insomnia is likely related to her perimenopa usal symptoms and is expected to improve with hormone replacemen t therapy.- The patient will also be started on prometrium , which is known to aid in sleep.- If the patient's insomnia does not improve with hormone replacemen t therapy, alternativ e treatment options will be considered . [facility] cation given [id number] Z71.9 [id number] Reshma Uribe NP Main Office [address] [place] [address] 05/02/2023 14:00:30 05/06/2023 06:46:38 Menopausal symptom 63124401 N95.1 - Patient's symptoms of night sweats, sleep problems, hot flashes, and mood changes are consistent with perimenopa usal changes.- Initiated hormone replacemen t therapy (HRT) with an estrogen patch and progestero ne pill at night.- Despite no adverse effects, patient reports no significan t improvemen t in symptoms yet.- Decided to continue the current HRT regimen for a full 12 weeks before considerin g any dose adjustment s.- Scheduled a follow-up appointmen t in six to eight weeks to reassess the effectiven ess of the HRT regimen. Hypothyroidism 34896511 E03.9 - Patient is currently on Synthroid 25 for hypothyroi dism.- Advised the patient to have a TSH level check within 12 weeks of starting HRT, as estrogen can increase the demands of thyroid hormone and may necessitat e dose adjustment s of Synthroid. - Patient's primary care physician will order the TSH test. [id number] Reshma Uribe NP Main Office [address] [place] [address] 06/13/2023 06:30:02 06/16/2023 05:07:39 Menopausal symptom 94713734 N95.1 - The patient's reported hot flashes and night sweats, which have decreased in frequency, are consistent with menopausal symptoms.- The current dose of estrogen has been in use since March and has shown some improvemen t in these symptoms.- To further alleviate these symptoms, the estrogen dose will be increased to 0.05mg semiweekly - continue progestero ne 100mg HS- Additional ly, a non-hormon al arousal cream, a topical Viagra for women, was discussed as an option to help with libido.- The patient has agreed to start with the dose increase and monitor the effects before considerin g the arousal cream.- A follow-up appointmen t has been scheduled for late August to assess the effects of the increased estrogen dose. Bipolar disorder 2953701 4 F31.9 - The recent diagnosis of bipolar disorder was discussed in the context of the patient's overall health and treatment plan.- The increase in estrogen is not expected to negatively impact the management of bipolar disorder, and may potentiall y improve mood symptoms.- The patient is also working with a psychiatri st or other provider for counseling and other mental health services.- Will continue monitoring . [id number] Reshma Uribe NP Main Office [address] [place] [address] 08/29/2023 06:32:02 09/01/2023 04:51:11 Menopausal symptom 06952565 N95.1 - Patient reports improvemen t with the current estrogen patch dose of 0.05.- continue progestero ne 100mg HS- No side effects experience d, such as headache, nausea, breast tenderness , or bleeding.- Patient is satisfied with the current dose and no changes will be made at this time.- Progestero ne refill will be sent to the pharmacy. Bipolar disorder 9581020 4 F31.9 - Patient is currently on medication and working with a psychiatri st to adjust dosing.- No changes to the treatment plan discussed during this visit.- Patient will continue to work with the psychiatri st for management of bipolar disorder. Insomnia 864923705 G47.0 0 - Patient is taking trazodone at night for sleep, but progestero ne has not made a significan t difference in sleep quality.- suggested trial of increasing progestero ne dose to 200 mg for a trial period of 5-7 days to assess sleep quality improvemen t.- Patient can contact the clinician via the portal if they decide to try the increased dose and report any changes in sleep quality.- No immediate changes to the treatment plan at this time.- Risks, benefits, and alternativ es of the medication s and treatment plan prescribed today were discussed, and patient expressed understand ing. Plan follow-up as discussed or as needed if any worsening symptoms or change in condition. [id number] Sherly Troncoso NP Main Office [address] [place] [address] 10/27/2023 07:34:45 10/28/2023 10:28:13 Obesity [id number] E66.9 - Patient has a BMI of 31.7, indicating obesity, with a weight increase of approximat amanda 30 pounds over the last year.- Currently participat ing in [employer] and has joined a gym to address weight issues.- Expressed interest in starting Wegovy for weight management , after confirming insurance coverage for Wegovy and Contrave.- Discussed the administra tion and side effects of Wegovy, including the titration schedule.- Patient will upload recent blood work to ensure safety and appropriat eness of starting Wegovy.- Initiate Wegovy at the lowest dose, with plans to gradually increase the dose as tolerated. - Menopausal symptom [id number] [id number] N95.1 - Patient is currently on a stable dose of hormone replacemen t therapy for menopausal symptoms.- No changes to the current hormone replacemen t therapy regimen are indicated at this time. [id number] Sherly Troncoso NP Main Office [address] [place] [address] 12/15/2023 13:07:44 12/16/2023 10:49:13 Menopausal symptom [id number] N95.1 - Patient is currently on a stable dose of hormone replacemen t therapy for menopausal symptoms.- No changes to the current hormone replacemen t therapy regimen are indicated at this time. - Refill estrogen patches for a 3-month supply to be sent to [facility].- Patient to continue current management and follow-up with [facility] for combined weight and menopause visits. Depressive disorder [id number] F32.A - Chronic, managed with Lexapro.- No changes to current treatment plan indicated at this time.- Patient to continue with current medication and follow-up as needed. Migraine [id number] G43.90 9 - Chronic, managed with Aimovig, Ubrelvy prn, and propranolo l.- No changes to current treatment plan indicated at this time.- Patient to continue with current medication s and follow-up as needed. Obesity [id number] E66.9 - Begin Wegovy 10/27/23- has been doing well, lost 7 ponds in 4 weeks- has nausea the first couple of days after injection- discussed sm frq meals, staying away from fatty meals, flat tani bryan, lemon water to combat nausea- she wishes to stay at current Wegovy dose of 0.25mg [id number] Sherly Troncoso NP Main Office [address] [place] [address] 04/23/2024 12:03:02 04/26/2024 14:56:56 Obesity [id number] E66.9 - Patient has been on Wegovy for weight management .- Current dose: 0.25 mg weekly, has been unable to ge 0.05- Patient has experience d weight loss on this regimen.- Advised patient to continue on the 0.025 mg dose for another 4 weeks.- Discussed the importance of obtaining the medication from pharmacies that have it in stock, such as [facility] or [facility].- Emphasized the need for monthly follow-up appointmen ts to monitor progress and adjust treatment as necessary. - Next follow-up appointmen t scheduled for June 04 at 12:30 PM.- Educated patient on the importance of a high-prote in diet, aiming for 100 grams of protein per day, and incorporat ing regular exercise to enhance weight loss efforts.- Patient understand s and agrees with the treatment plan. - Begin Wegovy 10/27/23- has been doing well, lost 7 ponds in 4 weeks- has nausea the first couple of days after injection- discussed sm frq meals, staying away from fatty meals, flat tani bryan, lemon water to combat nausea- she wishes to stay at current Wegovy dose of 0.25mg [id number] Sherly Troncoso NP Main Office [address] [place] [address] 06/03/2024 06:32:26 06/04/2024 04:15:55 Obesity [id number] E66.9 - Patient has been on Wegovy for one month with no reported side effects such as constipati on, diarrhea, or nausea.- Current weight is 166 lbs, a slight increase from the previous weight of 163 lbs.- Patient is adhering to dietary recommenda tions, including adequate protein intake.- Increased Wegovy dosage to 0.05 mg to be filled at [facility] in [facility].- Encouraged patient to continue current exercise regimen and maintain intake of 100 grams of protein, fiber, and adequate water.- Scheduled follow-up appointmen t for the week of June 27, with available times in the morning.- Patient instructed to contact the clinic if any issues arise before the next appointmen t. [id number] Sherly Troncoso, RUBBER COMPOUNDER SUPERVISOR Main Office [address] [place] [address] 07/02/2024 07:35:38 07/03/2024 04:08:57 Obesity [id number] E66.9 - Patient has been on Wegovy for weight management and has reported a weight loss of 1 pound.- Current dose of Wegovy to be continued for another 4 weeks.- Patient is engaging in exercise as part of the weight management plan.- Educated patient on the importance of continuing the current exercise regimen and maintainin g a balanced diet.- Next follow-up appointmen t scheduled for July 30 at 9:15 AM to reassess weight and overall progress.- Prescripti on for Wegovy sent to [facility] for continuati on of therapy. [id number] Sherly Troncoso, RUBBER COMPOUNDER SUPERVISOR Main Office [address] [place] [address] 07/30/2024 08:33:45 07/31/2024 04:08:51 Obesity [id number] E66.9 - Patient weight recorded at [facility] 164 pounds, with ongoing Wegovy therapy for weight management .- Discussed potential gastrointe stinal side effects (constipat ion, diarrhea, nausea); patient did not report any adverse symptoms.- Increased Wegovy to 1 mg subcutaneo usly once weekly; prescripti on for six pens sent to [facility]. - Scheduled follow-up visit in [facility] six weeks (on or around September 02) to reassess efficacy and tolerabili ty of therapy. Menopausal symptom 86708 002 N95.1 - Resumed estrogen 0.05 mg transderma l therapy and progestero ne 100 mg daily; prescripti ons sent to [facility]. - Discussed benefits including neuroprote ctive effects, cardiovasc ular protection , and reduced risk of osteoporos is. [id number] Sherly Troncoso, RUBBER COMPOUNDER SUPERVISOR Main Office [address] [place] [address] 09/02/2024 09:06:41 09/04/2024 04:14:38 Obesity [id number] E66.9 - Patient weight recorded at [facility] 164 pounds, with ongoing Wegovy therapy for weight management .- Discussed potential gastrointe stinal side effects (constipat ion, diarrhea, nausea); patient did not report any adverse symptoms.- Increased Wegovy to 1 mg subcutaneo usly once weekly; prescripti on for six pens sent to [facility]. - Scheduled follow-up visit in [facility] six weeks (on or around September 02) to reassess efficacy and tolerabili ty of therapy. [id number] Sherly Troncoso, NICOLE Main Office [address] [place] [address] 11/11/2024 15:10:22 11/12/2024 04:30:11 Obesity [id number] E66.9 - Diagnosis: Obesity, unspecifie d- Assessment : Weight remains stable with modest loss; insurance now requires switch from Wegovy to Zepbound.- Plan: Discussed medication options; will switch to Zepbound with dose converted to approximat e current 1 mg semaglutid e effect- Medication s supplement s: Send prescripti on for Zepbound to [facility]; continue Wegovy injections only if refills available until switch completed- Lifestyle measures: Continue dietary modificati ons and resume regular exercise when travel schedule allows- Follow up: Televisit scheduled 12 08 2024 at 08:15 AM Constipation [id number] K5 9.09 - Diagnosis: Constipati on associated with GLP-1 therapy - Assessment : Constipati on remains mild and responsive to over-the-c ounter measures. - Plan: Continue stool softener use and maintain high fluid intake; monitor symptoms - Medication s supplement s: Stool softener per current regimen - Lifestyle measures: Increase daily water intake, dietary fiber as tolerated - Follow up: Monitor at next scheduled visit or sooner if symptoms worsen Health Concerns Section Related Observation LastModified by Organization Detai ls LastModified Time None Recorded Concern Status LastModified by Organization Details LastModified Time None Recorded Advance Directives Directive None Recorded Payers Insurance Date Sequence Insurance Name Policy Number Policy Clark Covered Member ID Clark Member ID Guarantor Name 03/24/2023 1 *SELF PAY* Ze cong [facility] Episode No OBEpisode recorded.
--- OUTSIDE RECORDS SUMMARY | 2024-11-29 08:03 | XMS_ITS | Encounter Summary ---
Author Organization [facility] Address [address] [place] [address] Care Team Providers Care Health Policy Nurse Name Role Phone Lisbeth Vivi Primary Care Provider Encounter Details Date Type Department Care Team ([facility] st Contact Info) Description 01/17/2017 Orders Only [facility] [employer] [address] [facility] [address] [place] [address] Provider, [facility] Social History Tobacco Use Types Packs/Day Years Used Date Smoking Tobacco: Never Assessed Comments Unknown Sex and Gender Information Value Date Recorded Sex Assigned at Not on file Legal Sex Female 9:01 AM EDT Gender Identity Not on file Sexual Orientation Not on file documented as of this encounter Plan of Treatment Not on file documented as of this encounter Results * Due to [place] state law, this organization might not be sharing negative HIV tests. * US TRANSVAGINAL (FOR IVF USE ONLY)FC (01/17/2017 8:06 AM EDT) Narrative [facility] - 01/17/2017 8:07 AM EDT Study performed for the acquisition of images only. No professional Interpretation required. us Repvt Provider IMG US OBGYN ORDERABLES Final Re sult [facility] documented in this encounter Visit Diagnoses Diagnosis Infertility, female Female infertility of unspecified origin Infertility, female Female infertility of unspecified origin documented in this encounter Care Teams Health Policy Nurse Relationship Specialty Start Date End Date Vivi Bob [facility] [address] [place] [address] PCP - General Internal Medicine 01/17/17 documented as of this encounter
--- OUTSIDE RECORDS SUMMARY | 2024-11-29 08:03 | XMS_ITS | Clinical Summary ---
Author Organization [facility] Address [address] [place] [address] Phone Care Team Providers Care Wrapper Operator Name Role Phone Gume Marcial MD Primary Care Provider [phone] Encounters Date Type Department Care Team Description 11/10/2024 Telephone Internal Medicine - [facility] [address] [place] [address] Gume Marcial MD Referral (Neurology and sleep medicine) from Last 3 Months Surgical History Surgery Date Site/Laterality Comments WISDOM TOOTH EXTRACTION 2008 PROCEDURE: HISTORICAL WISDOM TEETH EXTRACTION ESOPHAGOGASTRODUODENOSCOPY 10/12/2015 PROCEDURE: IN ESOPHAGOGASTRODUODENOSCOPY TRANSORAL DIAGNOSTIC; COMMENT: Mild duodenitis, hiatal hernia, normal esophagus and stomach mucosa CHOLECYSTECTOMY 2017 PROCEDURE: HISTORICAL CHOLECYSTECTOMY Medical History Medical History Date Comments Depressive disorder, not els ewhere classified 04/25/2005 DX:Depressive disorder, not elsewhere classified Migraine, unspecified, witho ut mention of intractable migraine without mention of status migrainosus 12/17/2005 DX:Migraine, uns pecified, without mention of intractable migraine without mention of status migrainosus Esophageal reflux 12/17/2005 DX:Esophageal reflux Gestational diabetes mellitu s in childbirth, diet controlled 01/29/2013 DX:Gestational diabetes me llitus in childbirth, diet controlled Family history of HIV infection 01/29/2013 DX:Family history of HIV infection Obesity 01/29/2013 DX:Obesity Hypothyroid 02/10/2017 DX:Hypothyroid Covid-19 05/10/2020 DX:COVID-19 Family History Medical History Relation Name Comments No Known Problems Brother Colon polyps Father age 54 Diabetes Father Hyperlipidemia Father Hypertension Father Diabetes Maternal Grandfather Hypertension Maternal Grandfather Other: emphysema Maternal Grandfather Alzheimer's disease Maternal Grandmother Coronary artery disease Maternal Grandmother Diabetes Maternal Grandmother Hypertension Maternal Grandmother Asthma Mother Diabetes Mother Hypertension Mother Migraines Mother Thyroid disease Mother No Known Problems Paternal Grandfather Coronary artery disease Paternal Grandmother Diabetes Paternal Grandmother Hypertension Paternal Grandmother Relation Name Status Comments Brother Alive healthy Father Alive HTN, DIABETES, Sleep Apnea Maternal Grandfather (Age 85) Maternal Grandmother (Age 87) Mother Alive Thyroid, migrai ne Paternal Grandfather Paternal Grandmother Alive Social History Tobacco Use Types Packs/Day Years Used Date Smoking Tobacco: Never Smokeless Tobacco: Never Alcohol Use Standard Drinks/Week Comments Yes 0 (1 standard drink = 0.6 oz pur e alcohol) Comments Unknown Sex and Gender Information Value Date Recorded Sex Assigned at Not on file Legal Sex Female 9:30 AM EST Gender Identity Not on file Sexual Orientation Not on file Obstetrics History Last Filed Vital Signs Vital Sign Reading Time Taken Comments Blood Pressure 100/65 08/04/2023 2:59 PM EDT aut o Pulse 72 08/04/2023 2:59 PM EDT Temperature - - Respiratory Rate - - Oxygen Saturation - - Inhaled Oxygen Concentration - - Weight 80.7 kg (178 lb) 08/04/2023 2:59 PM EDT Height 160 cm (5' 3 ) 08/04/2023 2:59 PM EDT Body Mass Index 31.53 08/04/2023 2:59 PM EDT Plan of Treatment Health Maintenance Due Date Last Done Comments Breast Cancer Screening 1983 Cervical Cancer Screening: Pap Smear 10/20/2004 Hepatitis B Vaccines (2 of 3 - 19+ 3-dose series) 03/11/2017 02/11/2017 HIV Screening 04/12/2022 Hepatitis C Screening 04/12/2022 Social Influencers of Health Screening 04/12/2022 COVID-19 Vaccine ( season) 2024 01/09/2022, 04/20/2021, 08/27/2020, Additional history exists Depression Screening 05/05/2024 Influenza Vaccine (#1) 2025 , 03/25/2020, 03/26/2019, Additional history exists DTaP,Tdap,and Td Vaccines (4 - Td or Tdap) 01/30/2028 01/29/2018, 04/17/2011, 05/05/2001 Meningococcal ACWY Vaccine Aged Out 09/29/2003 N o longer eligible based on patient's age to complete this topic MMR Vaccines Completed 02/11/2017, 05/1995, 05/05/1985 HIB Vaccines Aged Out No longer eligi ble based on patient's age to complete this topic HPV Vaccines Aged Out No longer eligi ble based on patient's age to complete this topic Hepatitis A Vaccines Aged Out No long er eligible based on patient's age to complete this topic IPV Vaccines Aged Out No longer eligi ble based on patient's age to complete this topic Meningococcal B Vaccine Aged Out No l onger eligible based on patient's age to complete this topic Pneumococcal Vaccine: Pediatrics (0 to 5 Years) and At-Risk Patients (6 to 49 Years) Aged Out No longer eligible based on patient's age to complete this topic RSV Immunization Patients Under 20 months Aged Out No longer eligible based on patient's age to complete this topic Varicella Vaccines Aged Out No longer eligible based on patient's age to complete this topic Insurance [facility] Care Teams Wrapper Operator Relationship Specialty Start Date End Date Gume Marcial MD PCP - General Internal Medicine 03/08/20
[2024-11-29 08:06] VITALS: BP 110/68; PULSE 81; O2SAT 100; BMI 29.1
--- NOTE | 2024-11-29 08:06 | A.OFFVIS_ITS ---
Vital Signs 11/29/24 08:06 Height 5 ft 3 in Weight 164 lb 2 oz BMI 29.1 BP 110/68 Blood Pressure Location Lt brachial Position Sitting Pulse 81 Pulse Source Pulse Oximeter Pulse Oximetry (%) 100 Oxygen Delivery Method Room Air Intake Visit Reasons: Follow up Intake Note: Patient presents follow up migraine medication. Patient stopped Amovig 2 months ago. Accompanied by: Self / Same As Patient Allergies [id number] Antimigraine Agents Allergy (Unknown, Verified 11/29/24 08:07) Unknown Medication List - Last Reconciled 11/29/24 by JERAD Obando [id number]-[id number]-absn 50-325-40 mg 1 tab PO Q4H PRN 30 days cariprazine (Vraylar) 1.5 mg PO DAILY escitalopram oxalate mg PO famotidine 40 mg PO BEDTIME lamotrigine 150 mg PO DAILY levothyroxine 25 mcg PO DAILY propranolol ER 80 mg PO BEDTIME 90 days semaglutide (weight loss) (Wegovy) mg subcut trazodone 25 mg PO BEDTIME PRN tretinoin 0.025% appl topical BEDTIME ubrogepant (Ubrelvy) 50 - 100 mg (0.5 - 1 x 100 mg) PO ONCE PRN 30 days HPI Comments Details: 39-yr-old female presents for f/u visit of migraine. Pt denies any significant interval medical changes. She stopped the Aimovig about 2 months ago, as the injection was too painful regardless of where she was injecting it. Since, she has noticed a recurrence of tension, band like headaches again. She is overall photophobic, especially not sure light, but also at work. She works on a computer 8 hours a day, in a very well lit office that has floor to sealing windows and of fitted in mostly white furniture. She is using sunglasses during her workday, and has created some light barrier by covering a clear desk divider with her coat and shading, states work has not said anything about this yet. She does have lights at home, that can change color. Using Ubrelvy as needed, which is helpful. Compliant w/ Propranolol. Has not had any visual aura episodes. Baseline headache characteristics: Just once, had right eye tunnel vision. Mild-Severe. Headache starts with mild headache x's 3-4 days f/b a full attack x's another 4-7 days. A/w Photophobia, phonophobia, osmophobia, nausea, brain fog, tiredness. And Postdrome of not feeling well- lingering fatigue, tiredness, brain fog- difficulty word finding PFSH Medical History GERD (gastroesophageal reflux disease) Gestational diabetes Hypothyroidism History of COVID-19 Surgical History Wagoner teeth extracted Hx of cholecystectomy Family History Mother History of thyroid disorder Asthma Migraines Diabetes Hypertension CHF (congestive heart failure) Father Diabetes Hypertension Colon polyps Hypercholesteremia Paternal Grandmother Diabetes Hypertension CAD (coronary artery disease) Maternal Grandmother Hypertension Diabetes CAD (coronary artery disease) Alzheimer's dementia Maternal Grandfather Diabetes Hypertension Emphysema lung Social History Alcohol intake: current Alcohol intake frequency: does not drink Patient Tobacco Use Status: Never used Tobacco Physical Exam Vital Signs: Last Vital Signs Pulse 81 11/29/24 08:06 BP 110/68 11/29/24 08:06 Pulse Ox 100 11/29/24 08:06 Oxygen Delivery Method Room Air 11/29/24 08:06 BMI result Body Mass Index 29.1 Const General: cooperative and no acute distress Orientation/consciousness: patient oriented x3 Resp Effort & Inspection: normal respiratory effort and able to speak in complete sentences Neuro Other: photophobic General: patient oriented x3 Cranial nerves: Yes CN's II-XII intact bilaterally Cognition (Neuro): normal cognition Psych Appearance: grossly normal Mental Status: mental status grossly normal Speech and movement: Normal speech and movement present Affect: normal affect Attitude: cooperative Assessment & Plan Assessment & Plan (1) Migraine without aura: Comment: episodic Code(s): G43.009 - Migraine without aura, not intractable, without status migrainosus Category: Medical Qualifiers: Status migrainosus presence: without status migrainosus Intractability: not intractable Qualified Code(s): G43.009 - Migraine without aura, not intractable, without status migrainosus (2) Visual aura: Comment: One episode- right eye- seeing steve booker Code(s): H53.9 - Unspecified visual disturbance Category: Medical (3) Photophobia: Code(s): H53.149 - Visual discomfort, unspecified Category: Medical Plan For visual aura: Pt has had one episode of right visual aura f/b mild headache. Will monitor. Consider head imaging if repeated or worsening/new symptoms. ? For overall headache management: Continue to optimize good self-care, including but not limited to maintaining a healthy diet, adequate fluid intake, adequate sleep, and engaging in regular physical activity. Track headaches. Information shared on strategies to reduce migraine attacks triggered by light exposure at work. * FL-41 blue light filter in glasses, GreenLight exposure * Neuromodulation device * Pt would benefit from reasonable workplace accommodations- she will review and let us know what would work best for her. ? For acute headache treatment: Continue Ubrogepant (Ubrelvy) 100mg tab, 1/2 - 1 tab (50-100mg) at onset of headache, may repeat in 2 hours. Max of 2 tabs (200mg) per 24 hours. May adjunct with OTC Tylenol 650mg q 4 hours, Ibuprofen 600mg q 6 hours, or Naproxen 440mg q 12 hrs prn. Previous acute migraine medication trials: Sumatriptan, Naratriptan, Rizatriptan- helped w/ headache but all caused nausea, a cold sensation through spine, skin sensitivity. Fioricet-not fully effective Acute migraine medication contraindications: Triptans- not tolerated. ? For headache prevention medication: Continue Propranol ER 80mg qhs. Patient has stopped Aimovig 140mg sc q month, as this caused injection site pain. Previous migraine prevention medication trials: Amitriptyline- stopped to minimize risk of side effects. Nortriptyline- was effective but caused GI s/s. Topiramate 100mg qhs x's 12 weeks- ineffective. Aimovig 140mg sc q month, as t his caused injection site pain. Migraine prevention medication contraindications: None at this time. Future considerations: Qulipta, Vyepti, neuromodulation device ? ? Pt to follow-up in 6 months or sooner prn. Medications: New lamotrigine 200 mg PO DAILY Refilled ubrogepant (Ubrelvy) take at onset of migraine, may repeat in 2hrs (may take w/ Ibuprofen) 50 - 100 mg (0.5 - 1 x 100 mg) PO ONCE PRN 16 tabs 6RF migraine headache 30 days propranolol ER 80 mg PO BEDTIME 90 caps 1RF 90 days Discontinued erenumab-aooe (Aimovig Autoinjector) Discontinued Reason: Patient no longer taking 140 mg subcut ONCE 90 days 3 mL 3RF Coding Level of Care Code Est Pt Level 4 (34035) Diagnoses Migraine without aura and without status migrainosus, not intractable G43.009 Status migrainosus presence: without status migrainosus Intractability: not intractable Visual aura H53.9 Photophobia H53.149
== END 2024-11-29 08:37 | disposition home or self-care (01) ==
LOC: HO.HSMS 08:01
PROVIDERS: PCP Internal Medicine; Visit Provider Nurse Practitioner Family
DX: G43.009 Migraine without aura, not intractable, without status migrainosus (principal); H53.9 Unspecified visual disturbance; H53.149 Visual discomfort, unspecified
CPT/HCPCS: 99214